=== PATIENT | female | born 1995 | race African-American/Black ===

== ENCOUNTER 2018-06-16 19:04 | Emergency (ER) | payer OTHER ==
[~2018-06-16] VITALS: Ht 165.1 cm; Wt 72.6 kg
[2018-06-16 19:48] VITALS: BP 148/79
[2018-06-16 20:16] LABS: Basophils # (auto) 0 uL; Basophils % (auto) 0.6 % (0.0-2.0); Eosinophils # (auto) 0.1 uL; Eosinophils % (auto) 3.2 % (0.0-7.0); Hematocrit 38.1 % (36.0-46.0); Hemoglobin 12.3 g/dL (12.2-16.2); Lymphocytes # (auto) 2.3 uL; Mean Corpuscular Hemoglobin 28.8 pg (28.0-32.0); Mean Corpuscular Hgb Conc. 32.4 g/dL (32.0-36.0); Mean Corpuscular Volume 88.9 fL (80.0-100.0); Monocytes # (auto) 0.3 uL; Monocytes % (auto) 6.4 % (0.0-12.0); Neutrophils # (auto) 1.7 uL; Neutrophils % (auto) 38.8 % (37.0-80.0); Nucleated Red Blood Cells % 0.2 %; Platelet Count (auto) 230 10^3/uL (140-450); Red Blood Cells 4.29 10^6/uL (4.0-5.20); Red Cell Distribution Width 16.2 % (11.8-14.3); White Blood Cell 4.5 10^3/uL (4.4-10.8)
[2018-06-16 20:36] LABS: Albumin 3.7 g/dL (3.4-5.0); Calcium 8.2 mg/dL (8.5-10.1); Potassium 3.7 mmol/L (3.5-5.1)
[2018-06-16 20:41] LABS: Bilirubin, Total 0.2 mg/dL (0.2-1.0); Total Protein 7.3 g/dL (6.4-8.2)
[2018-06-16 21:29] LABS: Urine Bacteria NONE SEEN /hpf (None Seen); Urine Blood 2+ /uL (Negative); Urine Mucus FEW (None Seen); Urine Specific Gravity 1.016 (1.001-1.035); Urine WBC 2 /hpf (0 - 5)
[2018-06-16 21:43] LABS: Alcohol, Urine < 3.0 mg/dL (0-5); Amphetamine Screen, Urine POSITIVE (NEGATIVE); Barbiturate Scree,Urine NEGATIVE (NEGATIVE); Benzodiazephine Screen, Urine NEGATIVE (NEGATIVE); Cannabinoid Screen, Urine NEGATIVE (NEGATIVE); Cocaine Screen, Urine NEGATIVE (NEGATIVE); Opiate Scree,Urine NEGATIVE (NEGATIVE); Phencyclidine Screen, Urine NEGATIVE (NEGATIVE)
== END 2018-06-16 23:50 | disposition home or self-care (01) ==
LOC: ER 19:11
DX: N83.209 Unspecified ovarian cyst, unspecified side (principal); F15.10 Other stimulant abuse, uncomplicated
CPT/HCPCS: 36415; 74176; 80053; 80307; 81001; 81025; 83690; 85025